=== PATIENT | female | born 1975 | race Caucasian/White ===

== ENCOUNTER 2020-11-11 16:32 | Emergency (ER) | payer MEDICARE, MEDICAID, SELFPAY ==
[2020-11-11] VITALS (53 sets, daily range): BP systolic 95–160; BP diastolic 55–109; PULSE 75–95; RESP 8–28; TEMP 36.5–37.3; O2SAT 68–100
--- NOTE | 2020-11-11 16:45 | RT.EKG_ITS ---
APPROVED REPORT Exam: Resting ECG Patient Location: E HR:83 bpm ECG Measurements Heart Rate 83 AXIS NH 188 P -32 QRSd 113 QRS 32 QT 453 T 52 QTc 534 Conclusion Sinus rhythm...normal P axis, V-rate 60- 99 Incomplete left bundle branch block...QRSd>110mS, terminal axis(-90,-1) Low voltage, precordial leads...precordial leads <1.0mV Prolonged QT interval...QTc >510mS
--- NOTE | 2020-11-11 17:06 | W.ED.GENAD ---
Discharge Plan Disposition Patient Disposition: HOME Condition: Stable Discharge Details Clinical Impression: Hypokalemia, Hypomagnesemia Primary Care Provider: Dominguez Valerio ED Provider: Morelia Tanner Home Meds and New Rx's Prescriptions: Continued atorvastatin 20 mg Tablet 20 mg PO DAILY RF: 0 amitriptyline 25 mg Tablet 25 mg PO HS RF: 0 budesonide-formoterol 80-4.5 mcg/actuation Hfa Aerosol Inhaler 2 puff INHALATION BID RF: 0 carvedilol [Coreg] 25 mg Tablet 25 mg PO BID RF: 0 ezetimibe 10 mg Tablet 10 mg PO DAILY RF: 0 rosuvastatin [Crestor] 20 mg Tablet 20 mg PO HS RF: 0 sennosides [senna] 8.6 mg Tablet 8.6 mg PO HS RF: 0 nitrofurantoin 100 mg Capsule 100 mg PO BID RF: 0 cephalexin 500 mg Capsule 500 mg PO BID RF: 0 warfarin 5 mg Tablet 5 mg PO DAILY RF: 0 mirtazapine 15 mg Tablet 15 mg PO HS RF: 0 fluoxetine [Prozac] 20 mg Capsule 60 mg PO DAILY RF: 0 sevelamer carbonate 800 mg Tablet 2,400 mg PO TID RF: 0 omeprazole 20 mg Tablet,Delayed Release (Dr/Ec) 20 mg PO DAILY RF: 0 warfarin 5 mg Tablet 7.5 mg PO USEASDIRECTD RF: 0 albuterol 90 mcg/actuation Aerosol INHALATION Q6H RF: 0 acetaminophen 325 mg Tablet 650 mg PO Q6H PRNRF: 0 acyclovir 200 mg Capsule 200 mg PO BID RF: 0 Discharge Instructions Instructions: Hypokalemia (ED), Hypomagnesemia (ED) Additional Instructions: Follow up with primary care provider in 3-5 days. Return to ED sooner if any worsening or concerns. Increase oral fluids. Your potassium has improved from 2.9-3.2. This still slightly low normal is 3.5-4.5. Discussed this with your primary care provider. Usually electrolyte abnormalities will resolve with dialysis. do not want to take too much supplementation because your kidneys cannot filter out that. Referrals: Dominguez Valerio [Primary Care Provider] - Medical Decision Making 45-year-old female presents the ER with chief complaint of tingling in her extremities and bilateral lower leg cramping which began approximately 2 hours ago. Patient is a dialysis patient and had dialysis prior to arrival. She reports dialysis clinic gave her 5 750 mg p.o. calcium carbonate tablets prior to arrival. She states that she has had low calcium in the past and it feels the same. She denies any chest pain, no abdominal pain no nausea vomiting diarrhea. She states that she does still make urine. She does endorse mild shortness of breath. Does have a history of a parathyroidectomy. She reports having her calcium checked on Friday and the level was 8.5 at that time. CBC shows hemoglobin 10.9, hematocrit 32.6, RBC 3.27, sodium 139 potassium 2.9 chloride 92, carbon dioxide 37.6 BUN is 22 creatinine 5.1 GFR is 9.19 glucose is 114 magnesium is 1.6. AST ALT alk phos all within normal limits initial troponin is within normal limits. Protein is 8.3 albumin 4.2. On patient reevaluation she states she does not feel very well she is complaining of some shortness of breath satting 100% on room air, discussed her lab results with her she verbalized understanding. We will give 1 g of magnesium IV and 40 mEq potassium liquid p.o. Patient requesting Potassium tablets versus liquid, order changed. 1914: Magnesium is infusing without difficulty, patient states I just do not feel right she states that she has some shortness of breath she is satting 100% on room air, discussed possible anxiety lungs are clear to auscultation bilaterally she does agree to try lorazepam 0.5 mg p.o. and order placed to see if this improves her symptoms. 2014: Patient reevaluation states that her shortness of breath has improved after the lorazepam she was requesting something to eat was given some food by hourly sales staff. Patient states that she does not feel well enough to go home she states that she still does not feel right she states that her whole body does not feel right. We will recheck a BMP to evaluate her potassium. I did discuss with patient that I am not finding any evidence other than her electrolyte abnormalities for her symptoms or any evidence for admission at this time patient states that she normally gets care in [place]. She lives in [place]. 21 10 repeat BMP is improved potassium is 3.2 up from 2.9. Discussed there is no indication for admission at this time patient is tolerating p.o. will instruct patient to follow-up with primary care HPI General Mode of arrival: ambulatory. Date/Time Provider Initiated Documentation: 11/11/20 16:33. Limitations to Documentation: no limitations. Information obtained by: patient. HPI Narrative: 45-year-old female presents the ER with chief complaint of tingling in her extremities and bilateral lower leg cramping which began approximately 2 hours ago. Patient is a dialysis patient and had dialysis prior to arrival. She reports dialysis clinic gave her 5 750 mg p.o. calcium carbonate tablets prior to arrival. She states that she has had low calcium in the past and it feels the same. She denies any chest pain, no abdominal pain no nausea vomiting diarrhea. She states that she does still make urine. She does endorse mild shortness of breath. Does have a history of a parathyroidectomy. She reports having her calcium checked on Friday and the level was 8.5 at that time. Related Data Home Medications Medication Instructions Recorded Confirmed acetaminophen 650 mg PO Q6H PRN 11/11/20 11/11/20 acyclovir 200 mg PO BID 11/11/20 11/11/20 albuterol mcg INHALATION Q6H 11/11/20 amitriptyline 25 mg PO HS 11/11/20 11/11/20 atorvastatin 20 mg PO DAILY 11/11/20 11/11/20 budesonide-formoterol 2 puff INHALATION BID 11/11/20 11/11/20 carvedilol [Coreg] 25 mg PO BID 11/11/20 11/11/20 cephalexin 500 mg PO BID 11/11/20 11/11/20 ezetimibe 10 mg PO DAILY 11/11/20 11/11/20 fluoxetine [Prozac] 60 mg PO DAILY 11/11/20 11/11/20 mirtazapine 15 mg PO HS 11/11/20 11/11/20 nitrofurantoin 100 mg PO BID 11/11/20 11/11/20 omeprazole 20 mg PO DAILY 11/11/20 11/11/20 rosuvastatin [Crestor] 20 mg PO HS 11/11/20 11/11/20 sennosides [senna] 8.6 mg PO HS 11/11/20 11/11/20 sevelamer carbonate 2,400 mg PO TID 11/11/20 11/11/20 warfarin 5 mg PO DAILY 11/11/20 11/11/20 warfarin 7.5 mg PO USEASDIRECTD 11/11/20 11/11/20 Allergies Allergy/AdvReac Type Severity Reaction Status Date / Time house dust mite AdvReac Unverified 11/11/20 17:09 General Stated Complaint: GenMedical ANAID: 3 Review of Systems Narrative: Constitutional: Negative for weight loss, alert and oriented, well groomed, well-nourished body habitus, appears comfortable. Is a dialysis patient. HEENT: Denies trauma, headaches, blurry vision, nasal discharge, sore throat, trouble swallowing. Chest: Denies chest pain, palpitations, irregular rhythm, hypertension. Respiratory: Denies Shortness of breath, cough, hemoptysis. GI: Denies abdominal pain, nausea, vomiting, diarrhea, constipation. : Denies dysuria, hematuria, flank pain, rectal bleeding. Musculoskeletal: Reports tingling in her extremities and bilateral lower extremity cramping. Neuro: Denies dizziness, blurry vision, syncope, headache or facial numbness. Hematologic: Denies easy bruising, intolerance to heat or cold, hair loss. Does have a history of a parathyroidectomy. [facility] Social History Smoking/Tobacco Use Status: Former Tobacco Use Quit Date: 11/11/17 Tobacco: How many years used: 2 Smoking risk assessment performed?: Yes Alcohol Intake: former Substance use type: marijuana Details: Used to use Marijuana Do you feel safe at home: Yes Do you feel safe in your relationship?: Yes Exam Narrative Exam Narrative: Constitutional: Alert and oriented x3. Appears stated age. Normal body habitus. Head: Normocephalic, no trauma. Eyes: Pupils PERRLA, Red reflex noted, EOM's intact. Eyelids symmetrical without lesions, discharge, or swelling. . Chest: RRR, Normal S1, S2, distal pulses intact. Resp: Lungs clear to auscultation bilaterally, no wheezes, rales, or rhonchi. Musculoskeletal: Normal gait, 5/5 strength to all four extremities. Has a dialysis shunt to her left upper extremity. Skin: No suspicious rashes or lesions. Capillary refill less than 2 sec. Neurologic: Cranial nerves II-XII intact. Alert and oriented x 3. DTR's intact. No edema noted. Hematologic/Lymphatic: No ecchymosis, no lymphadenopathy. Course Vital Signs Vital signs: Vital Signs Temperature 37.3 C 11/11/20 16:45 Pulse 84 11/11/20 16:45 Respiratory Rate 16 11/11/20 16:45 Blood Pressure 125/75 11/11/20 16:45 Pulse Oximetry 96 11/11/20 16:45 Temperature 37.3 C 11/11/20 16:45 Pulse 84 11/11/20 16:45 Respiratory Rate 16 11/11/20 16:45 Respiratory Effort 11/11/20 17:03 Blood Pressure 125/75 11/11/20 16:45 Blood Pressure Position Supine 11/11/20 16:45 Pulse Oximetry 96 11/11/20 16:45 Oxygen Delivery Method Room Air 11/11/20 16:45 Oxygen Flow Rate 0 11/11/20 16:45 Pain Level 0 11/11/20 16:45
[2020-11-11 17:21] LABS: Abs Immature Grans 0.08 10^3/uL (0.0-0.06); Absolute Basophil Count 0.06 10^3/uL (0.0-0.2); Absolute Eosinophil Count 0.16 10^3/uL (0.0-0.7); Absolute Lymphocyte Count 2.14 10^3/uL (1.2-3.4); Absolute Monocyte Count 0.71 10^3/uL (0.1-0.8); Basophils % 0.6; Eosinophils % 1.7; HCT 32.6 % (36.0-46.0); HGB 10.9 g/dL (11.2-15.7); Immature Grans % 0.8; Lymphocytes % 22.4; MCH 33.3 pg (27.0-33.0); MCHC 33.4 % (32.0-36.0); MCV 99.7 fL (80-95); MPV 8.2 fL (8.0-11.0); Monocytes % 7.4; Neutrophils % 67.1; Nucleated RBC 0 %; Platelet Count 314 10^3/uL (130-400); RBC 3.27 10^6/uL (3.93-5.22); RDW 15.7 % (11.7-14.6); WBC 9.55 10^3/uL (4.4-10.8)
[2020-11-11 17:38] LABS: ALT 29 U/L (14-59); AST 17 U/L (15-37); Albumin 4.2 g/dL (3.4-5.0); Alkaline Phosphatase 73 U/L (46-116); Anion Gap 9.4 mmol/L (3-11); BUN 22 mg/dL (7-18); Bilirubin, Total 0.5 mg/dL (0.2-1.0); CO2 37.6 mmol/L (21.0-32.0); Chloride 92 mmol/L (98-107); Estimated GFR 9.19 (mL/min/1.73m2); Glucose 114 mg/dL (74-106); Magnesium 1.6 mg/dL (1.8-2.4); Sodium 139 mmol/L (136-145); Total Protein 8.3 g/dL (6.4-8.2)
[2020-11-11 17:56] LABS: Troponin I < 0.05 ng/mL (<0.06)
[2020-11-11 17:57] LABS: CREATININE 5.1 mg/dL (0.55-1.02)
[2020-11-11 17:58] LABS: Potassium 2.9 mmol/L (3.5-5.1)
[2020-11-11] MEDS: MAGNESIUM SULFATE 1 GM/100 ML BAG IVPB (18:29)
[2020-11-11] MEDS: Ondansetron O.D.T. 4 MG TABEF PO (18:29)
[2020-11-11] MEDS: Potassium Chloride 20 MEQ TABCR 40 MEQ PO (18:38)
[2020-11-11] MEDS: LORazepam 0.5 MG TAB PO (19:20)
[2020-11-11 20:44] LABS: Anion Gap 9.8 mmol/L (3-11); BUN 26 mg/dL (7-18); CO2 36.2 mmol/L (21.0-32.0); Calcium 8.5 mg/dL (8.5-10.1); Chloride 92 mmol/L (98-107); Estimated GFR 8.42 (mL/min/1.73m2); Glucose 117 mg/dL (74-106); Potassium 3.2 mmol/L (3.5-5.1); Sodium 138 mmol/L (136-145)
[2020-11-11 21:07] LABS: CREATININE 5.5 mg/dL (0.55-1.02)
== END 2020-11-11 22:30 | disposition home or self-care (01) ==
PROVIDERS: Emergency Provider Registered Nurse Emergency; PCP Family Medicine
DX: E87.6 Hypokalemia (principal); E83.42 Hypomagnesemia; R20.2 Paresthesia of skin; R25.2 Cramp and spasm
CPT/HCPCS: 36415; 80048; 80053; 93005; 96365; 99284; 83735; 84484; 85025; 93010; J3475